=== PATIENT | male | born 2000 | race Asian ===

== ENCOUNTER 2018-06-30 16:44 | Emergency (ER) | payer OTHER, MEDICAID ==
[~2018-06-30] VITALS: Ht 188 cm; Wt 103.0 kg
[2018-06-30 16:47] VITALS: Ht 188 cm; Wt 103.0 kg
[2018-06-30 17:39] VITALS: BP 144/82
== END 2018-06-30 17:39 | disposition home or self-care (01) ==
LOC: ED 16:44
DX: S70.311A Abrasion, right thigh, initial encounter (principal); W54.0XXA Bitten by dog, initial encounter; Y93.89 Activity, other specified; Y92.89 Other specified places as the place of occurrence of the external cause; Y99.8 Other external cause status